=== PATIENT | female | born 1960 | race Caucasian/White ===

== ENCOUNTER → 2016-07-02 | Outpatient (CLI) | payer SELFPAY ==
--- NOTE | 2016-07-02 09:31 | CT ---
CLINICAL INDICATION: Screening, family history COMPARISON: None PROCEDURE: Gated acquisition of images through the mediastinum was performed without contrast. Data set was used for calcium scoring. FINDINGS: Total coronary calcium score is 0 LM: 0 LAD: 0 LCX: 0 RCA: 0 Extracardiac findings: No pathologically enlarged lymph nodes. The aortic arch is unremarkable in its appearance with norm al vascular configuration. If there are innumerable calcified nodules in the bilateral lung bases. Normal-sized heart. The soft tissues and osseous structures are unremarkable. IMPRESSION: 1. Total calcium score of 0. There is no identifiable calcified plaque. Risk of coronary artery dise ase is considered very low, generally less than 5%. 2. Incidental note is made of innumerable calcified nodules in the bilateral lung bases. Differentia l considerations are broad and include sequela of granulomatous disease, sarcoidosis, silicosis or o ther occupational exposure pneumoconiosis. Reported By:
== END ==
LOC: RAD 08:30
PROVIDERS: ATTEND Internal Medicine
DX: Z13.6 Encounter for screening for cardiovascular disorders (principal)